=== PATIENT | male | born 1990 | race Caucasian/White ===

== ENCOUNTER → 2016-10-28 | Outpatient (CLI) | payer OTHER ==
--- NOTE | 2016-10-28 15:22 | XR ---
EXAMINATION TYPE: XR cervical spine w flex/ext DATE OF EXAM: 10/28/2016 TECHNIQUE: Frontal, lateral, oblique, swimmers, and open mouth view of the cervical spine are henry dTana HISTORY: M54.12 Radiculopathy, cervical region COMPARISON: None FINDINGS: At Neutral there is reversal of the normal cervical lordosis which can be seen in patients with muscle spasticity. Alignment is anatomic at both flexion and extension. Moderate degenerative di sc space narrowing and spondylosis is identified at C4-5 and C5-6. No fracture or subluxation. IMPRESSION: 1. Correlate for muscle spasticity. 2. Degenerative changes.
== END ==
LOC: RADXRMAIN 13:33
PROVIDERS: ATTEND Family Medicine
DX: M47.22 Other spondylosis with radiculopathy, cervical region (principal)
CPT/HCPCS: 72052

== ENCOUNTER 2018-02-08 11:45 | Emergency (ER) | payer BC, OTHER ==
[2018-02-08 12:05] VITALS: RESP 18
--- NOTE | 2018-02-08 12:17 | ED ---
General Adult HPI - General Chief complaint: Urogenital Stated complaint: Urogenital Time Seen by Provider: 02/08/18 11:54 Source: patient, RN notes reviewed Mode of arrival: ambulatory Limitations: no limitations - History of Present Illness Initial comments: Patient is a pleasant 28-year-old male presenting to the emergency department with penile pain. Patient states around an hour and a half ago he was sleeping and rolled over. Patient did have an erection at that time. Patient fully pop and sudden discomfort. Discomfort remains however is increased with touch or movement. Patient has noticed some swelling. No redness. No history of similar symptoms previously. Discomfort is the penis itself. - Related Data Previous Rx's Medication Instructions Recorded Cyclobenzaprine [Flexeril] 10 mg PO TID #14 tab 12/02/14 Ibuprofen [Motrin] 800 mg PO Q6HR PRN #20 tab 12/02/14 Hydrocodone/Acetaminophen [[place] 2 each PO Q6HR PRN #16 tab 02/08/18 5-325] Allergies Allergy/AdvReac Type Severity Reaction Status Date / Time No Known Allergies Allergy Verified 02/08/18 12:05 Review of Systems ROS Statement: Those systems with pertinent positive or pertinent negative responses have been documented in the HPI. ROS Other: All systems not noted in ROS Statement are negative. Constitutional: Denies: fever Eyes: Denies: eye pain ENT: Denies: ear pain Respiratory: Denies: cough Cardiovascular: Denies: chest pain Endocrine: Denies: fatigue Gastrointestinal: Denies: abdominal pain Genitourinary: Reports: as per HPI. Denies: discharge, testicular pain, testicular mass Musculoskeletal: Denies: back pain Skin: Denies: rash Neurological: Denies: weakness Past Medical History Past Medical History: Asthma Additional Past Medical History / Comment(s): chronic neck pain History of Any Multi-Drug Resistant Organisms: None Reported Past Surgical History: Tonsillectomy Past Psychological History: No Psychological Hx Reported Smoking Status: Never smoker Past Alcohol Use History: None Reported Past Drug Use History: None Reported General Exam Limitations: no limitations General appearance: alert, in no apparent distress Head exam: Present: atraumatic Eye exam: Present: normal appearance Respiratory exam: Present: normal lung sounds bilaterally Cardiovascular Exam: Present: regular rate, normal rhythm GI/Abdominal exam: Present: soft. Absent: tenderness exam: Present: other (Right side of penis with mild to moderate swelling. No discoloration. No angulation. There is tenderness.). Absent: testicular tenderness, urethral discharge, scrotal swelling Extremities exam: Present: normal inspection Neurological exam: Present: alert Psychiatric exam: Present: normal affect, normal mood Skin exam: Present: normal color. Absent: erythema Course Vital Signs 02/08/18 11:59 Temperature 98.4 F Pulse Rate 97 Respiratory 18 Rate Blood Pressure 165/104 O2 Sat by Pulse 98 Oximetry - Reevaluation(s) Reevaluation #1: 02/08/18 12:16 Case was discussed with urology, Dr. Yung who does agree with ultrasound. He feels it is unlikely to be penile shaft fracture. Medical Decision Making - Medical Decision Making Patient reevaluated and unchanged. Case again discussed with Dr. Yung who was okay with discharge and will follow up with patient this week. - Radiology Data Radiology results: report reviewed (Ultrasound the penis shows soft tissue swelling lateral to the corpus that may represent hematoma.) Disposition Clinical Impression: Penis injury Disposition: HOME SELF-CARE Condition: Stable Instructions: Hematoma (ED) Additional Instructions: Please follow-up with primary care physician and urologist this coming week. Phone number provided for urologist.. Return for increased pain, increased swelling, unable to urinate, fevers, worsening symptoms or other concerns. Prescriptions: Hydrocodone/Acetaminophen [[place] 5-325] 2 each PO Q6HR PRN #16 tab PRN Reason: Pain Is patient prescribed a controlled substance at d/c from ED?: Yes When asked, does pt state using other controlled substances?: No If prescribed controlled substance>3 days was MAPS reviewed?: Prescribed <3 Days If opioid is for acute pain is fill amount 7 days or less?: Yes If Rx opioid, was Start Talking consent form obtained?: Yes Referrals: Juaquin Hassan DO [Primary Care Provider] - 1-2 days Time of Disposition: 13:52
--- NOTE | 2018-02-08 13:15 | US ---
EXAMINATION TYPE: US groin RT DATE OF EXAM: 02/08/2018 COMPARISON: NONE CLINICAL HISTORY: Pain. Patient states he woke up to a "pop" in his penis this morning and now states it looks weird, patient states his urine stream seems restricted. Penis: 2.0cm area seen to the right of shaft, possible normal tissue vs. other etiology. IMPRESSION: SOFT TISSUE SWELLING LATERAL TO THE CORPUS OF THE PENIS MAY REPRESENT HEMATOMA. UROLOGIC CONSULT WOUL D BE SUGGESTED.
[2018-02-08] MEDS ORDERED: HYDROcodone/APAP 5-325MG 1 EACH TAB PO STA (13:53)
--- NOTE | 2018-02-08 13:57 | ED ---
Disposition Clinical Impression: Penis injury Disposition: HOME SELF-CARE Condition: Stable Instructions: Hematoma (ED) Additional Instructions: Please follow-up with primary care physician and urologist this coming week. Phone number provided for urologist.. Return for increased pain, increased swelling, unable to urinate, fevers, worsening symptoms or other concerns. Prescriptions: Hydrocodone/Acetaminophen [[place] 5-325] 2 each PO Q6HR PRN #16 tab PRN Reason: Pain Is patient prescribed a controlled substance at d/c from ED?: Yes When asked, does pt state using other controlled substances?: No If prescribed controlled substance>3 days was MAPS reviewed?: Prescribed <3 Days If opioid is for acute pain is fill amount 7 days or less?: Yes If Rx opioid, was Start Talking consent form obtained?: Yes Referrals: Juaquin Hassan DO [Primary Care Provider] - 1-2 days Mj Phillip MD [STAFF PHYSICIAN] - 1-2 days
[2018-02-08 14:11] VITALS: BP 139/82; PULSE 81; TEMP 98.1
== END 2018-02-08 14:12 | disposition home or self-care (01) ==
LOC: EC 11:45
DX: S39.94XA Unspecified injury of external genitals, initial encounter (principal); X58.XXXA Exposure to other specified factors, initial encounter; Y92.009 Unspecified place in unspecified non-institutional (private) residence as the place of occurrence of the external cause
CPT/HCPCS: 99283

== ENCOUNTER → 2021-02-21 | Outpatient (CLI) | payer OTHER, BC ==
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
== END | disposition home or self-care (01) ==
LOC: RADUSWWP 15:17
PROVIDERS: ATTEND Family Medicine
DX: R22.42 Localized swelling, mass and lump, left lower limb (principal)
CPT/HCPCS: 76857

== ENCOUNTER → 2021-08-02 | Outpatient (CLI) | payer OTHER ==
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
== END | disposition home or self-care (01) ==
LOC: RADUSWWP 12:47
PROVIDERS: ATTEND Family Medicine
DX: T14.8XXA Other injury of unspecified body region, initial encounter (principal); V49.9XXA Car occupant (driver) (passenger) injured in unspecified traffic accident, initial encounter

== ENCOUNTER → 2021-12-11 | Outpatient (CLI) | payer OTHER ==
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
== END | disposition home or self-care (01) ==
LOC: RADUSWWP 15:36
PROVIDERS: ATTEND Family Medicine
DX: S30.0XXA Contusion of lower back and pelvis, initial encounter (principal); T14.8XXA Other injury of unspecified body region, initial encounter

== ENCOUNTER → 2021-12-19 | Outpatient (CLI) | payer OTHER ==
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
== END | disposition home or self-care (01) ==
LOC: RADFLMAIN 12:41
PROVIDERS: ATTEND Physical Medicine & Rehabilitation
DX: M25.512 Pain in left shoulder (principal)
CPT/HCPCS: 23350; 73040; 73222; Q9967

== ENCOUNTER → 2024-09-22 | Outpatient (CLI) | payer OTHER ==
--- NOTE | 2024-09-22 14:57 | XR ---
EXAMINATION TYPE: XR hand complete LT DATE OF EXAM: 09/22/2024 CLINICAL INDICATION: Male, 34 years old with history of PAIN IN LEFT FINGER(S), pain TECHNIQUE: Frontal, lateral and oblique images of the left hand are obtained. COMPARISON: Left hand x-ray 2014. FINDINGS: There is no acute fracture/dislocation evident in the left hand. The joint spaces in the l eft hand appear within normal limits. No suspicious focal osseous lesion. The overlying soft tissue appears unremarkable. IMPRESSION: As above. [facility], , 09/22/2024 2:54 PM
== END | disposition home or self-care (01) ==
LOC: RADXRMAIN 14:33
PROVIDERS: ATTEND Physician Assistant
DX: M79.645 Pain in left finger(s) (principal)